=== PATIENT | male | born 1995 | race Asian ===

== ENCOUNTER 2022-03-15 17:00 | Emergency (ER) | payer OTHER ==
[~2022-03-15] VITALS: Ht 175.3 cm; Wt 96.2 kg
[2022-03-15 17:00] VITALS: TEMP 99
[2022-03-15 18:15] VITALS: BP 136/84
== END 2022-03-15 18:18 | disposition home or self-care (01) ==
LOC: ED 17:00
DX: B34.9 Viral infection, unspecified (principal); R19.7 Diarrhea, unspecified; Z20.822 Contact with and (suspected) exposure to COVID-19
CPT/HCPCS: 87502; 87635; 87651; 99283; U0003